=== PATIENT | male | born 2000 | race Two or more races ===

== ENCOUNTER 2020-03-15 08:43 | Emergency (ER) | payer SELFPAY ==
[~2020-03-15] VITALS: Ht 172.7 cm; Wt 75.0 kg
[2020-03-15 09:15] LABS: BILIRUBIN,URINE NEGATIVE (NEG); CLARITY,URINE CLEAR; COLOR,URINE YELLOW; NITRITE,URINE NEGATIVE (NEG); PROTEIN,URINE NEGATIVE (NEG-TRACE); UROBILINOGEN,URINE 0.2 mg/dL (0.2 mg/dL)
[2020-03-15 09:28] LABS: BACTERIA,URINE 0 /HPF (0-FEW); RBC,URINE 0 /HPF (0-2); SQUAMOUS EPITHELIAL CELL,UR FEW /LPF; WBC,URINE 0 /HPF (0-4)
[2020-03-15] MEDS ORDERED: diphenhydrAMINE 50 MG/ML VIAL IVP ONE (10:00)
[2020-03-15] MEDS ORDERED: DEXAMETHASONE SOD PHOS 4 MG/ML VIAL IVP ONE (10:00)
[2020-03-15] MEDS ORDERED: FAMOTIDINE 20 MG/2 ML VIAL IVP ONE (10:00)
[2020-03-15 12:00] VITALS: BP 120/63
[2020-03-15] MEDS ORDERED: DIPH25CA58 PO (12:07)
[2020-03-15] MEDS ORDERED: PRED50TA PO (12:07)
[2020-03-15] MEDS ORDERED: EPIPEN0.3 MG/0.3 IM (12:07)
--- NOTE | 2020-03-15 14:04 | PHYS DOC ---
Past Medical History Past Medical History: Asthma Additional Past Medical Histor: only resuce inhaler for asthma, no daily meds Past Surgical History: No Surgical History Smoking Status: Never Smoker Alcohol Use: Occasionally General Adult EDM: Chief Complaint: ABDOMINAL PAIN HPI: HPI: Patient is a 19 year old male who presents with nausea, vomiting, abdominal pain, throat swelling, cough. Patient states that he was eating a protein bar when this suddenly happened. This is happened to him one other time while eating mixed nuts. He is unsure which not he is allergic to. He has never seen a physician for this previously. He continues to have a weird feeling in back of his throat but denies any difficulty talking or swallowing. His abdomen is feeling better. He has not had any kind of rash. He has not had any wheezing or stridor. Review of Systems: Review of Systems: General: Denies fever, chills, sweats, fatigue Eyes: Denies drainage, blurred vision HENT: Denies rhinorrhea, sore throat reports throat swelling Respiratory: Denies cough, shortness of breath, wheezing Cardiac: Denies edema, palpitations, chest pain GI: Reports abdominal pain, N/V MSK: Denies back pain, neck pain Skin: Denies rash, jaundice Neuro: Denies headache, dizziness Psychiatric: Denies SI/HI Heart Score: Risk Factors: Risk Factors: DM, Current or recent (<one month) smoker, HTN, HLP, family hi story of CAD, obesity. Risk Scores: Score 0 - 3: 2.5% MACE over next 6 weeks - Discharge Home Score 4 - 6: 20.3% MACE over next 6 weeks - Admit for Clinical Observation Score 7 - 10: 72.7% MACE over next 6 weeks - Early Invasive Strategies Current Medications: Current Medications Medications (Trade) Dose Ordered Sig/Hair Start Time Stop Time Status Last Admin Dose Admin Dexamethasone Sodium Phosphate (Decadron) 10 mg 1X ONCE 03/15/20 10:00 03/15/20 10:01 DC 03/15/20 10:13 10 MG Diphenhydramine HCl (Benadryl) 25 mg 1X ONCE 03/15/20 10:00 03/15/20 10:01 DC 03/15/20 10:14 25 MG Famotidine (Pepcid Vial) 20 mg 1X ONCE 03/15/20 10:00 03/15/20 10:01 DC 03/15/20 10:14 20 MG Allergies: Allergies: Allergies Coded Allergies Type Severity Reaction Last Updated Verified Sulfa (Sulfonamide Antibiotics) Allergy Unknown Unknown 03/15/20 Yes Physical Exam: PE: Constitutional: Well developed, well nourished, Cooperative, NAD, non-toxic appearing HEENT: Normocephalic, atraumatic, oropharynx moist, mild swelling of the uvula and posterior oropharynx, no stridor, EOMI, PERRL, no drainage from eyes, normal conjunctiva Neck: Supple, normal range of motion, no stridor Cardiovascular: RRR, 2+ radial pulses bilaterally, no edema Respiratory: CTA bilaterally, no respiratory distress, no wheezing/crackles Abdomen: Soft, nontender, nondistended, no masses Skin: Warm, dry, intact Extremities: No obvious deformities Neurologic: Alert and Oriented x3, motor and sensory function grossly normal, no focal deficits Psychologic: Normal affect, normal judgment, normal mood. No SI/HI Current Patient Data: Labs: Laboratory Tests Test 03/15/20 08:55 Urine Collection Type Void Urine Color Yellow Urine Clarity Clear Urine pH 5.0 (<5.0-8.0) Urine Specific [place] >=1.030 (1.000-1.030) Urine Protein Negative mg/dL (NEG-TRACE) Urine Glucose (UA) Negative mg/dL (NEG) Urine Ketones (Stick) Negative mg/dL (NEG) Urine Blood Negative (NEG) Urine Nitrite Negative (NEG) Urine Bilirubin Negative (NEG) Urine Urobilinogen Dipstick 0.2 mg/dL (0.2 mg/dL) Urine Leukocyte Esterase Negative (NEG) Urine RBC 0 /HPF (0-2) Urine WBC 0 /HPF (0-4) Urine Squamous Epithelial Cells Few /LPF Urine Bacteria 0 /HPF (0-FEW) Urine Mucus Slight /LPF Vital Signs: Vital Signs Date Time Temp Pulse Resp B/P (MAP) Pulse Ox O2 Delivery O2 Flow Rate FiO2 03/15/20 12:00 66 16 120/63 (82) 98 Room Air 03/15/20 08:53 97.9 97.9 EKG: EKG: [] Radiology/Procedures: Radiology/Procedures: [] Course & Med Decision Making: Course & Med Decision Making Pertinent Labs and Imaging studies reviewed. (See chart for details) Patient is a 19-year-old male who presents to the emergency room with throat swelling and abdominal pain with nausea vomiting. Patient meets criteria for anaphylaxis. He does not appear to be in any distress at this time. I have discussed doing medications versus medications with epinephrine at this time. A t this time we will move forward with doing steroids, Pepcid, Benadryl and reevaluate. Patient had great improvement of swelling while in the emergency room. He no longer has a feeling of swelling in the back of his throat, cough, abdominal pain, nausea, vomiting. He is feeling back to normal. We will place him on a steroid burst and Benadryl. We will write him a prescription for an EpiPen. I have discussed with him that he should see an plastic parts fabricator trimmer for testing and should at this time avoid all knots until he knows which nut he is allergic to. Patient's test results and vitals while in the ED were fully reviewed and discussed with the patient. Patient is stable and at this time does not need admission to the hospital. We have discussed strict return precautions and the importance of following up with their Primary Care Physician. Patient stated understanding and was given an opportunity to ask any questions. [place] Disclaimer: Dragaster Disclaimer: This electronic medical record was generated, in whole or in part, using a voice recognition dictation system. Departure Departure Impression: Primary Impression: Allergic reaction Disposition: HOME, SELF-CARE Condition: IMPROVED Patient Instructions: Anaphylactic Reaction, [id number] Scripts Epinephrine (Epipen) 0.3 Mg/0.3 Ml Auto.injct 0.3 MG IM UD PRN for ANAPHYLAXIS, #1 SYR 0 Refills Prov: LEIGHTON MATA MD 03/15/20 Diphenhydramine Hcl (BENADRYL) 25 Mg Capsule 1 CAP PO QHS for 5 Days, #5 CAP 0 Refills Prov: LEIGHTON MATA MD 03/15/20 Prednisone (PREDNISONE) 50 Mg Tablet 1 TAB PO DAILY for 4 Days, #4 TAB Prov: LEIGHTON MATA MD 03/15/20 LEIGHTON MATA MD Mar 15, 2020 14:04
== END 2020-03-15 12:15 | disposition home or self-care (01) ==
LOC: ER 08:43
DX: T78.1XXA Other adverse food reactions, not elsewhere classified, initial encounter (principal); J39.2 Other diseases of pharynx; R10.9 Unspecified abdominal pain; R11.2 Nausea with vomiting, unspecified; Z88.2 Allergy status to sulfonamides; X58.XXXA Exposure to other specified factors, initial encounter
CPT/HCPCS: 81001; 96374; 96375; 99285; J1100; J1200; J3490